=== PATIENT | female | born 1950 | race African-American/Black ===

== ENCOUNTER → 2016-08-25 | Day surgery (SDC) | payer MEDICARE, OTHER ==
[~2016-08-25] MED LIST: ALBUTEROL17 GM INH; AZOPT10 ML OU; FLEXERIL10 MG PO; FLONASE ALLERG9.9 ML; HYDROCHLOROTHIA25 MG PO; IBUPROFEN800 MG PO; LATANOPROST2.5 ML OU; LOPRESSOR PO; MEDROL4 MG/DOSE- PO; NORVASC10 MG PO; PRED FORTE1 ML OD; TIMOPTIC5 ML OU; TRAMADOL HCL50 M1 PO
--- NOTE | ~2016-08-25 | OR ---
Unit #: [id number] #: [id number] Patient: ETHAN ADAMS [id number] [address] [address] [id number] O MR#: [id number] NAME: ETHAN ADAMS. ROOM: Date of Procedure: 08/25/2016 Admission Date: 08/25/2016 Surgeon: Marcel Pham M.D. : 1950 Attending Physician: Marcel Pham M.D. Primary Care Physician: Janeth Malcolm M.D. OPERATIVE REPORT PROCEDURE PERFORMED Colonoscopy to cecum with snare polypectomy. INDICATIONS FOR PROCEDURE A 66-year-old female with history of colon polyps in the past. MEDICATIONS Monitored anesthesia. POSTOPERATIVE FINDINGS 1. Polyp, 6 mm, descending colon, snared and sent for histopathology. 2. Mild diverticulosis. 3. Good prep. PLAN Repeat colonoscopy in 5 years. DESCRIPTION OF PROCEDURE The patient was explained of the procedure, risks, and benefits along with the risks and benefits of anesthesia. She was brought to the endoscopy room. Propofol anesthesia was given. Rectal exam was done, which was normal. Colonoscope was lubricated, passed up the rectum, advanced under direct vision all the way to the cecum. Cecum was identified by ileocecal valve and appendiceal orifice. I then started to pull the scope out carefully looking. Polyp seen in the descending colon was snared and sent for histopathology. Rest of the mucosa was normal and healthy. I retroflexed in the rectum, small hemorrhoids seen. The scope was gently pulled out. She tolerated it well. Dictated by... Jimmy Rain/karan TD: 08/25/2016 19:54 JOB #: [id number] Unit #: [id number] #: [id number] Patient: ETHAN ADAMS OPERATIVE REPORT Page 1 of 1 X Marcel Pham MD X PROCEDURE OPERATIVE NOTE
== END | disposition home or self-care (01) ==
LOC: COPS 10:20
DX: K63.5 Polyp of colon (principal); K57.30 Diverticulosis of large intestine without perforation or abscess without bleeding; I10 Essential (primary) hypertension; J45.909 Unspecified asthma, uncomplicated; K21.9 Gastro-esophageal reflux disease without esophagitis; E66.01 Morbid (severe) obesity due to excess calories; M19.90 Unspecified osteoarthritis, unspecified site; Z68.42 Body mass index [BMI] 45.0-49.9, adult; Z88.1 Allergy status to other antibiotic agents; Z88.2 Allergy status to sulfonamides; Z88.8 Allergy status to other drugs, medicaments and biological substances; Z79.899 Other long term (current) drug therapy; Z90.89 Acquired absence of other organs; Z98.890 Other specified postprocedural states
CPT/HCPCS: 88305

== ENCOUNTER → 2016-10-10 | Outpatient (CLI) | payer MEDICARE ==
--- NOTE | ~2016-10-10 | US128 ---
[id number] [facility] [address] [place], [place] [address] [id number] O MR#: [id number] Acc #: [id number] NAME: ETHAN ADAMS : 1950 SEX: F STUDY DATE/TIME: 10/10/2016 11:52 UNIT: [facility] ROOM: STUDY DESCRIPTION: Thyroid Attending Physician: Sandeep Glover M.D. Referring Physician: Sandeep Glover M.D. Ordering Physician: Sandeep Glover M.D. Primary Care Physician: Janeth Malcolm M.D. MEDICAL IMAGING REPORT This report is preliminary unless electronic signature is present EXAM Thyroid ultrasound, 10/10/2016 HISTORY Goiter. COMPARISON Thyroid ultrasound, 09/29/2015. FINDINGS Right thyroid lobe measures 2.1 x 5.6 x 2.6 cm. Left thyroid lobe measures 2.2 x 4.4 x 2.0 cm. Isthmus measures 11 mm thickness. Thyroid parenchyma is heterogeneous. Two benign-appearing, mildly complex cystic nodules are seen within the right thyroid lobe, one in the upper pole measuring 7 x 7 x 4 mm, and another within the mqh-it-dvdjk pole region measuring 7 x 5 x 7 mm, not thought to be significantly changed. There is a dominant solid appearing nodule within the left lower thyroid pole measuring about 1.2 x 1.4 x 1.3 cm. On the previous study, it measured a maximal 18 mm, and its slight diminished size since the previous examination may be due to differences in measurement technique, but it is clearly not enlarged, and overall morphology appears similar. Another small, solid-appearing nodule within the left upper thyroid pole measuring 6 x 4 x 7 mm and is likewise stable. IMPRESSION 1. Diffusely enlarged thyroid gland with multinodular appearance as described above. The two dominant solid nodules within the left thyroid lobe are again noted and appear stable. No new thyroid nodules are identified. Dictated by... Radha Wilkes M.D. THIS IS AN ELECTRONICALLY VERIFIED REPORT Radha Wilkes M.D. at 10/11/2016 11:57 AM NANY/deepa TD: 10/11/2016 01:42 JOB #: [id number] MEDICAL IMAGING REPORT Page 1 of 1 COPY
== END | disposition home or self-care (01) ==
LOC: CWCC 11:30
DX: E04.2 Nontoxic multinodular goiter (principal); E04.1 Nontoxic single thyroid nodule
CPT/HCPCS: 76536

== ENCOUNTER → 2016-11-22 | Outpatient (CLI) | payer MEDICARE ==
--- NOTE | ~2016-11-22 | US37 ---
[facility] A Service of [facility] & [facility] / [facility] RADIOLOGY TEXT RESULTS PATIENT: ETHAN ADAMS LOCATION: [facility] : [birth year] UNIT #: [id number] AGE: [address]: Ervin Mcdonald MD SEX: F ORDER DR: [id number] [facility] [address] [place], [place] [address] [id number] O MR#: [id number] Acc #: [id number] NAME: ETHAN ADAMS : 1950 SEX: F STUDY DATE/TIME: 11/22/2016 14:32 UNIT: [facility] ROOM: STUDY DESCRIPTION: US Carotid W/Doppler Bilateral Attending Physician: Ervin Mcdonald M.D. Referring Physician: Ervin Mcdonald M.D. Ordering Physician: Ervin Mcdonald M.D. Primary Care Physician: Janeth Malcolm M.D. MEDICAL IMAGING REPORT This report is preliminary unless electronic signature is present EXAM Carotid Doppler bilateral 11/22/2016 HISTORY 1 episode of amaurosis fugax that lasted for 2 hours on 11/13/2016. Blurred vision since 2002. Hypertension and elevated cholesterol levels. Evaluate for carotid stenosis. FINDINGS Ferris-scale carotid artery images were obtained as well as Doppler waveform, spectral analysis, and color flow Doppler imaging. The examination was interpreted according to NASCET criteria. There is no hemodynamically significant stenosis in either carotid artery. Peak systolic velocity in the right and left internal carotid arteries was 97 cm/sec and 108 cm/sec respectively. Antegrade blood flow is seen in both vertebral arteries. IMPRESSION No hemodynamically significant stenosis in either carotid artery. Dictated by... Tio Murdock M.D. THIS IS AN ELECTRONICALLY VERIFIED REPORT Tio Murdock M.D. at 11/24/2016 7:46 AM JOHN/linda TD: 11/23/2016 08:47 JOB #: [id number] MEDICAL IMAGING REPORT Page 1 of 1 COPY
== END | disposition home or self-care (01) ==
LOC: CNIV 13:45
DX: G45.3 Amaurosis fugax (principal)
CPT/HCPCS: 93880